=== PATIENT | female | born 1990 | race American Indian/Alaskan Native ===

== ENCOUNTER 2017-04-04 04:01 | Inpatient (IN) | payer BC, OTHER ==
[2017-04-04 04:45] VITALS: BMI 29.1
[2017-04-04] MEDS: Lactated Ringer's 1,000 ML IV SCH ×2 (04:45→21:15)
[2017-04-04] MEDS ORDERED: Penicillin G 5 Million Unit Vial IVPB ONE (05:00)
--- NOTE | 2017-04-04 05:00 | OBADHP ---
Datetime: 04/04/2017 04:49 Admit Comment, IP Provider: Chief complaint-leaking of fluids HPI 26 y/o at 39.3 wga with c/o leaking of fluid dinsce midnight.patient denies nausea, vomit ing, headache, chest pain, shortness of reath, numbness or tingling in hands and feet course-uncomplicated; initial care with dr millie trujillo with dr loza PMH denies PSH bilateral breast excision biopsies OBGYN Hx Social hx denies tobacco,alcohol or illicit drug use Exam see exam section A/P 26 y/o at 39.3 wga with srom.irregular ctx.gb spsoitive -admit -managament as per dr loza Pelvic Type - PN: Adequate Extremities - PN: Normal Abdomen - PN: Normal Back - PN: Normal Lungs - PN: Normal Heart - PN: Normal Neurologic - PN: Normal General - PN: Normal Weight - Estimated: 3200 Presentation-Admit: Vertex Amniotic Fluid Color, Provider: Clear Membranes, Provider: Ruptured Contraction Comments Provider: irregular Gestation - Est Wks by US: 39.3 Pool Provider: Positive Nitrazine Provider: Positive Ferning Provider: Positive IP Hx Assessment: The History has been Reviewed and is Current Vital Signs Provider: Reviewed; Within Normal Limits IP Chief Complaint: Suspected ruptured membranes FHR Category Provider Fetus A: Category I Dilatation, Provider: 1 Effacement, Provider: 50 Station, Provider: -2 Genitourinary Exam: Normal DTRs - PN: Normal EGA AdmitDate IP: 39.3 IP Adm Impression: Term, intrauterine ; Ruptured Membranes IP Admit Plan: Admit to unit; Initiate labor protocol
[2017-04-04 05:36] LABS: RBC URINE < 1 /hpf (0-3); URINE BILIRUBIN NEGATIVE (NEGATIVE); URINE COLOR Straw (YELLOW); URINE GLUCOSE (UA) NORMAL (Normal); URINE KETONE NEGATIVE (NEGATIVE); URINE LEUKOCYTE ESTERASE 1+ Leu/uL (Negative); URINE PROTEIN NEGATIVE (NEGATIVE); URINE UROBILINOGEN NORMAL mg/dL (0.2-1.0); WBC URINE 1 /hpf (0-5)
[2017-04-04 05:51] LABS: CHLORIDE 104 mmol/L (98-107); POTASSIUM 3.8 mmol/L (3.6-5.2); SODIUM 133 mmol/L (132-148)
[2017-04-04 05:53] LABS: AST/SGOT 23 U/L (14-36); BILIRUBIN,TOTAL 0.4 mg/dL (0.2-1.3); CARBON DIOXIDE 21 mmol/L (22-30); GFR AFRICAN-AMERICAN > 60
[2017-04-04 05:54] LABS: ALB/GLOB RATIO 0.8 (1.0-2.1); ALKALINE PHOSPHATASE 177 U/L (38-126); ALT/SGPT 27 U/L (9-52); BASO % 0.2 % (0.0-2.0); BLOOD UREA NITROGEN 6 mg/dL (7-17); CALCIUM 9.4 mg/dl (8.6-10.4); EOS # 0.1 K/uL (0.0-0.7); GLUCOSE,RANDOM 64 mg/dL (65-105); HEMATOCRIT 30.6 % (34.0-47.0); LYMPH # 1.6 K/uL (1.0-4.3); LYMPH % 16.1 % (20.0-40.0); MEAN CELL VOLUME 84.5 fL (81.0-99.0); MEAN CORPUSCULAR HEMOGLOBIN 28.5 pg (27.0-31.0); MEAN CORPUSCULAR HGB CONC 33.7 g/dL (33.0-37.0); MEAN PLATELET VOLUME 8.8 fL (7.2-11.7); MONO % 10.2 % (0.0-10.0); NRBC % 0.1 % (0.0-2.0); RED CELL DISTRIBUTION WIDTH 14.9 % (11.5-14.5); TOTAL PROTEIN 7.2 g/dL (6.3-8.3); WHITE BLOOD COUNT 10.1 K/uL (4.8-10.8)
[2017-04-04 05:55] LABS: URINE BLOOD NEGATIVE (NEGATIVE)
--- NOTE | 2017-04-04 07:00 | OBPN ---
Datetime: 04/04/2017 06:55 IP Progress Impression: Reassuring heart rate IP Progress Plan: Cervical Ripening Contraction Comments Provider: irregular Gestation - Est Wks by US: 39.3 Weight - Estimated: 3200 Presentation-Admit: Vertex IP Progress Note Comment: Aske dbsrini loza to place cevridil S-patient comfortable.denies any ctx o-vss afebrile FHT cat1 [place] irregular ctx sve 50/-3; adequate pelvis A/P Patient at 39.3 wga with prom. -cervidil place -continue pen G for gbs -monitor closely Vital Signs Provider: Reviewed; Within Normal Limits FHR Category Provider Fetus A: Category I Dilatation, Provider: 1 Effacement, Provider: 50 Station, Provider: -2 Datetime: 04/04/2017 04:49 Pool Provider: Positive Nitrazine Provider: Positive Ferning Provider: Positive Membranes, Provider: Ruptured Amniotic Fluid Color, Provider: Clear
[2017-04-04] MEDS ORDERED: Bupivacaine 0.125%/FentaNYL 200 ML EPI ONE (14:58)
[2017-04-04] MEDS: Penicillin G Potassium 2.5 MU in Dextrose 5% In Water 50 ML IV SCH ×2 (17:50→22:00)
[2017-04-04] MEDS ORDERED: Oxytocin 30 UNIT 30 UNITS/500 ML BAG IV PRN (19:05)
[2017-04-04] MEDS ORDERED: Oxytocin 30 UNIT 30 UNITS/500 ML BAG IV ONE (20:32)
[2017-04-05] MEDS: Penicillin G Potassium 2.5 MU in Dextrose 5% In Water 50 ML IV SCH (01:32)
[2017-04-05] MEDS ORDERED: Lidocaine 2% Inj (20ml) ONE (02:49)
[2017-04-05] MEDS ORDERED: Benzocaine/Menthol 20%-0.5% Topical Spray (60 ml) TOP PRN (08:00)
[2017-04-05] MEDS ORDERED: Oxycodone/Acetaminophen 5/325 mg Tab PO PRN (08:00)
[2017-04-05] MEDS ORDERED: Dextrose 5%/Lactated Ringer's 1,000 ML IV SCH (08:00)
[2017-04-06 08:00] LABS: HEMATOCRIT 28.6 % (34.0-47.0); MEAN CELL VOLUME 85.2 fL (81.0-99.0); MEAN CORPUSCULAR HEMOGLOBIN 28.3 pg (27.0-31.0); MEAN CORPUSCULAR HGB CONC 33.2 g/dL (33.0-37.0); MEAN PLATELET VOLUME 8.6 fL (7.2-11.7); WHITE BLOOD COUNT 12.6 K/uL (4.8-10.8)
[2017-04-06 16:12] VITALS: O2SAT 99
[2017-04-07] MEDS ORDERED: Influenza Vaccine 60 mcg/0.5 mL SYR (4YR UP) IM ONE (08:00)
[2017-04-07 08:31] VITALS: BP 106/55; RESP 18; TEMP 97.9
--- NOTE | 2017-04-07 09:53 | CP.PCM.DIS ---
Provider - Provider Date of Admission: 04/04/17 04:45 26 yo that came to Hospital with [facility] Attending physician: Melissa Sharma MD Time Spent in preparation of Discharge (in minutes): 40 Diagnosis - Discharge Diagnosis (1) Baby delivered more than 24 hours after rupture of membranes Status: Acute Hospital Course - Lab Results Lab Results: Most Recent Lab Values WBC 12.6 K/uL (4.8-10.8) H 04/06/17 07:50 RBC 3.36 Mil/uL (3.80-5.20) L 04/06/17 07:50 Hgb 9.5 g/dL (11.0-16.0) L 04/06/17 07:50 Hct 28.6 % (34.0-47.0) L 04/06/17 07:50 MCV 85.2 fL (81.0-99.0) 04/06/17 07:50 MCH 28.3 pg (27.0-31.0) 04/06/17 07:50 MCHC 33.2 g/dL (33.0-37.0) 04/06/17 07:50 RDW 15.0 % (11.5-14.5) H 04/06/17 07:50 Plt Count 166 K/uL (130-400) 04/06/17 07:50 MPV 8.6 fL (7.2-11.7) 04/06/17 07:50 Neut % (Auto) 72.5 % (50.0-75.0) 04/04/17 05:29 Lymph % (Auto) 16.1 % (20.0-40.0) L 04/04/17 05:29 [place] % (Auto) 10.2 % (0.0-10.0) H 04/04/17 05:29 Eos % (Auto) 1.0 % (0.0-4.0) 04/04/17 05:29 Baso % (Auto) 0.2 % (0.0-2.0) 04/04/17 05:29 Neut # 7.3 K/uL (1.8-7.0) H 04/04/17 05:29 Lymph # 1.6 K/uL (1.0-4.3) 04/04/17 05:29 [place] # 1.0 K/uL (0.0-0.8) H 04/04/17 05:29 Eos # 0.1 K/uL (0.0-0.7) 04/04/17 05:29 Baso # 0.0 K/uL (0.0-0.2) 04/04/17 05:29 Sodium 133 mmol/L (132-148) 04/04/17 05:29 Potassium 3.8 mmol/L (3.6-5.2) 04/04/17 05:29 Chloride 104 mmol/L (98-107) 04/04/17 05:29 Carbon Dioxide 21 mmol/L (22-30) L 04/04/17 05:29 Anion Gap 12 (10-20) 04/04/17 05:29 BUN 6 mg/dL (7-17) L 04/04/17 05:29 Creatinine 0.6 mg/dL (0.7-1.2) L 04/04/17 05:29 Est GFR ( Amer) > 60 04/04/17 05:29 Est GFR (Non-Af Amer) > 60 04/04/17 05:29 Random Glucose 64 mg/dL (65-105) L 04/04/17 05:29 Calcium 9.4 mg/dl (8.6-10.4) 04/04/17 05:29 Total Bilirubin 0.4 mg/dL (0.2-1.3) 04/04/17 05:29 AST 23 U/L (14-36) 04/04/17 05:29 ALT 27 U/L (9-52) 04/04/17 05:29 Alkaline Phosphatase 177 U/L (38-126) H 04/04/17 05:29 Total Protein 7.2 g/dL (6.3-8.3) 04/04/17 05:29 Albumin 3.3 g/dL (3.5-5.0) L 04/04/17 05:29 Globulin 3.9 gm/dL (2.2-3.9) 04/04/17 05:29 Albumin/Globulin Ratio 0.8 (1.0-2.1) L 04/04/17 05:29 Urine Color Straw (YELLOW) 04/04/17 05:29 Urine Clarity Clear (Clear) 04/04/17 05:29 Urine pH 6.0 (5.0-8.0) 04/04/17 05:29 Ur Specific [place] 1.010 (1.003-1.030) 04/04/17 05:29 Urine Protein Negative mg/dL (NEGATIVE) 04/04/17 05:29 Urine Glucose (UA) Normal mg/dL (Normal) 04/04/17 05:29 Urine Ketones Negative mg/dL (NEGATIVE) 04/04/17 05:29 Urine Blood Negative (NEGATIVE) 04/04/17 05:29 Urine Nitrate Negative (NEGATIVE) 04/04/17 05:29 Urine Bilirubin Negative (NEGATIVE) 04/04/17 05:29 Urine Urobilinogen Normal mg/dL (0.2-1.0) 04/04/17 05:29 Ur Leukocyte Esterase 1+ [place]/uL (Negative) H 04/04/17 05:29 Urine WBC (Auto) 1 /hpf (0-5) 04/04/17 05:29 Urine RBC (Auto) < 1 /hpf (0-3) 04/04/17 05:29 Ur Squamous Epith Cells 1 /hpf (0-5) 04/04/17 05:29 RPR Nonreactive (NONREACTIVE) 04/04/17 05:29 Blood Type AB POSITIVE 04/04/17 05:29 Antibody Screen Negative 04/04/17 05:29 - Date & Time of H&P Date of H&P: 04/04/17 Discharge Exam - Head Exam Head Exam: ATRAUMATIC, NORMAL INSPECTION, NORMOCEPHALIC - Eye Exam Eye Exam: EOMI, Normal appearance, PERRL Pupil Exam: NORMAL ACCOMODATION, PERRL - Respiratory Exam Respiratory Exam: Clear to PA & Lateral - Cardiovascular Exam Cardiovascular Exam: REGULAR RHYTHM - GI/Abdominal Exam GI & Abdominal Exam: Normal Bowel Sounds - Rectal Exam Rectal Exam: NORMAL INSPECTION - Exam Exam: Circumcision, NORMAL INSPECTION External exam: NORMAL EXTERNAL EXAM Speculum exam: NORMAL SPECULUM EXAM Bimanual exam: NORMAL BIMANUAL EXAM - Neurological Exam Neurological exam: Alert, CN II-XII Intact, Normal Gait, Oriented x3, Reflexes Normal - Psychiatric Exam Psychiatric exam: Normal Affect, Normal Mood - Skin Skin Exam: Dry, Intact, Normal Color, Warm Discharge Plan - Discharge Medications Prescriptions: Ibuprofen [Motrin Tab] 600 mg PO Q6 PRN #60 tab PRN Reason: Pain, Moderate (4-7) - Follow Up Plan Instructions: and Plugged Ducts (DC), How to Tell if Your Baby is Getting Enough Breast Milk (DC), Jaundice in Newborns (DC), Bleeding (DC) Additional Instructions: No heavy lifting, light activity, drink plenty of fluids, follow up with Dr. Sharma. Clinical Quality Measures - CQM - Stroke Antithrombotic Prescribed: Patient Refused Anticoagulation Prescribed for Atrial Flutter, Atrial Fibrillation and History of:: Not Applicable - CQM - VTE Did patient receive overlap therapy during hosptialization?: No Is patient being discharged on overlap therapy?: No
[2017-04-07 16:29] VITALS: PULSE 88
== END 2017-04-07 12:20 | disposition home or self-care (01) | DRG 775 ==
LOC: C.EROB 04:01 → C.4D 04:45 → C.4M 04-05 04:25
PROVIDERS: ADMIT Obstetrics & Gynecology; ATTEND Obstetrics & Gynecology
PROC: 10E0XZZ Delivery of Products of Conception, External Approach (ICD-10-PCS; principal; 2017-04-04)
DX: O99.824 Streptococcus B carrier state complicating childbirth (principal); O42.12 Full-term premature rupture of membranes, onset of labor more than 24 hours following rupture; Z37.0 Single live birth; Z3A.39 39 weeks gestation of pregnancy